=== PATIENT | female | born 1985 | race Caucasian/White ===

== ENCOUNTER 2019-04-12 03:12 | Emergency (ER) | payer MEDICAID ==
[~2019-04-12] VITALS: Ht 154.9 cm; Wt 77.1 kg
[2019-04-12 03:14] VITALS: BP 115/78
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
[2019-04-12] MEDS ORDERED: LORazepam 2 MG/ML VIAL IVP ONE (03:15)
[2019-04-12] MEDS ORDERED: NACL 0.9% 1,000 ML IV ONE ×2 (03:15→04:05)
--- NOTE | 2019-04-12 03:15 | NUR ---
DR ACUÑA AT BEDSIDE
[2019-04-12] MEDS ORDERED: LORazepam 2 MG/ML VIAL IM ONE (03:20)
--- NOTE | 2019-04-12 03:20 | NUR ---
PT REMAINS ERRATIC AND HYSTERICAL, YELLING DESPITE REORIENTATION AND CALMING PT. ADMINISTERED ATIVAN 2MG IM WITH EDUCATION, PER VERBAL ORDER FROM DR ACUÑA. PT TOLERATED WELL.
[2019-04-12] MEDS ORDERED: ONDANSETRON 4 MG/2 ML VIAL IVP ONE (03:30)
[2019-04-12 03:35] LABS: BASOPHILS # (AUTO) 0.1 K/uL (0.00-0.22); BASOPHILS % (AUTO) 1.8 % (0.0-2.0); EOSINOPHILS # (AUTO) 0.2 K/uL (0-0.4); EOSINOPHILS % (AUTO) 4.2 % (0.0-4.0); HEMATOCRIT 35.1 % (36-48); HEMOGLOBIN 11.3 g/dL (12.0-16.0); LYMPHOCYTES # (AUTO) 2.6 K/uL (2.5-16.5); MEAN CORPUSCULAR HEMOGLOBIN 27 pg (27-31); MEAN CORPUSCULAR HGB CONC 32 g/dL (33-37); MEAN CORPUSCULAR VOLUME 83.6 fL (80-94); MONOCYTES # (AUTO) 0.3 K/uL (0.8-1.0); MONOCYTES % (AUTO) 6.2 % (1.7-9.3); NEUTROPHILS # (AUTO) 1.2 K/uL (1.8-7.7); NEUTROPHILS % (AUTO) 27.6 % (42.2-75.2); PLATELET COUNT (AUTO) 349 K/uL (140-450); RED CELL DISTRIBUTION WIDTH 20.4 % (11.6-13.7); WHITE BLOOD COUNT (AUTO) 4.3 K/uL (4.8-10.8)
[2019-04-12] MEDS ORDERED: HALOPERIDOL IM 5 MG/ML VIAL IM ONE (03:40)
--- NOTE | 2019-04-12 03:40 | NUR ---
PT REMAINS ERRATIC AND HYSTERICAL, YELLING, DESPITE REORIENTATION AND CALMING PT AND ATIVAN IM. ADMINISTERED HALDOL 5MG IM WITH EDUCATION. PT TOLERATED WELL.
[2019-04-12 03:46] LABS: ANION GAP 19.1 (8-16); CARBON DIOXIDE 19.9 mmol/L (21-32); CREATININE 0.5 mg/dL (0.6-1.3)
[2019-04-12 03:49] LABS: LYMPHOCYTES % (AUTO) 60.2 % (20.5-51.1)
--- NOTE | 2019-04-12 03:55 | NUR ---
PT WITH IMPROVEMENT IN BEHAVIOR, PT IS MORE CALM AND COOPERATIVE.
--- NOTE | 2019-04-12 04:00 | NUR ---
[place] [employer] AT BEDSIDE
[2019-04-12 04:01] LABS: ALBUMIN 3.5 g/dL (3.4-5.0); TOTAL BILIRUBIN 0.2 mg/dL (0.0-1.0)
[2019-04-12 04:06] LABS: APPEARANCE,URINE CLEAR (CLEAR); BILIRUBIN,URINE NEGATIVE (NEGATIVE); BLOOD, URINE NEGATIVE (NEGATIVE); COLOR,URINE YELLOW (YELLOW); LEUKOCYTE ESTERASE ,URINE NEGATIVE (NEGATIVE); NITRITE, URINE NEGATIVE (NEGATIVE); UGLUCOSE NEGATIVE (NEGATIVE)
[2019-04-12 04:15] LABS: BARBITURATE, URINE NEG. ng/ml (NEG <=200); BENZODIAZEPINE, URINE NEG. ng/mL (NEG <=200); CANNABINOID, URINE NEG. ng/mL (NEG <=50); COCAINE, URINE NEG. ng/mL (NEG <=300); OPIATE, URINE NEG. ng/mL (NEG <=2000); PHENCYCLIDINE SCREEN,URINE NEG. ng/mL (NEG <=25)
--- NOTE | 2019-04-12 04:20 | NUR ---
PT TAKEN TO CT
--- NOTE | 2019-04-12 04:39 | NUR ---
PT BACK FROM CT. SPO2 89-91% ON RA WHILE SLEEPING, AROUSABLE TO TOUCH. SPO2 99% ON O2 2L NC. RR EVEN AND UNLABORED. ALL NEEDS MET AT THIS TIME.
--- NOTE | 2019-04-12 05:25 | NUR ---
DR ACUÑA AT BEDSIDE
--- NOTE | 2019-04-12 05:25 | NUR ---
PT LAYING IN BED, SLEEPING, AROUSABLE TO PAIN, LETHARGIC, VSS, RR EVEN AND UNLABORED. ALL NEEDS MET AT THIS TIME.
--- NOTE | 2019-04-12 05:26 | NUR ---
[place] [employer] AT BEDSIDE
--- NOTE | 2019-04-12 07:08 | NUR ---
Pt report given to ABHI LIGHT. Transfer of care at this time.
--- NOTE | 2019-04-12 07:14 | NUR ---
report recieved from sandrine cruz. pt sleeping in bed. arousable to pain. vss at this time. lights turned off for pt comfort.
--- NOTE | 2019-04-12 07:18 | NUR ---
dr delgado at bedside
--- NOTE | 2019-04-12 09:35 | NUR ---
pt breakfeast bedside. pt woken to eat and then returned to sleeping immediately after.
--- NOTE | 2019-04-12 09:50 | NUR ---
pt awoken again by touch. looks at food and then goes back to sleep.
[2019-04-12 10:10] LABS: MAGNESIUM 1.7 mg/dL (1.8-2.4)
--- NOTE | 2019-04-12 11:03 | NUR ---
PT STATES SHE HAS MONEY AND WILL TAKE A CAB
--- NOTE | 2019-04-12 11:40 | NUR ---
CALLED SECURITY FOR SHOES. AGUSTIN STATES SHE WILL LOOK FOR SIZE 10.
--- NOTE | 2019-04-12 11:50 | NUR ---
SECURITY BROUGHT PT SANDRA
--- NOTE | 2019-04-12 11:50 | NUR ---
PT UNABLE TO PASS ROAD TEST. PER DR SAUCEDA PT CAN SLEEP UNTIL SHE CAN PASS THE TEST
--- NOTE | 2019-04-12 12:04 | NUR ---
ACCU CHECK 76, PT INSTRUCTED TO EAT BREAKFEAST. PT CONINTUES TO FALL BACK ASLEEP.
--- NOTE | 2019-04-12 12:54 | NUR ---
VSS AT THIS TIME. PT SLEEPING, AROUSABLE TO PAIN
--- NOTE | 2019-04-12 13:48 | NUR ---
PT ASSISTED ONTO BED BOLTON. FAILED SECOND ROAD TEST.
--- NOTE | 2019-04-12 15:40 | NUR ---
PT [id number]. GIVEN JUICE AND WATER. PT NEVER ATE BREAKFEAST, STATES SHE IS NOT HUNGRY. FAILED ROAD TEST FOR THIRD TIME, UNSTEADY WALK. PT SITTING UPRIGHT IN BED.
--- NOTE | 2019-04-12 16:27 | NUR ---
RECENT ACCU CHECK 107
--- NOTE | 2019-04-12 17:00 | NUR ---
PT PASSES ROAD TEST BUT WISHES TO BE WHEELCHAIRED TO CAB
[2019-04-12 17:10] VITALS: BP 117/81
--- NOTE | 2019-04-12 17:10 | NUR ---
Patient discharged with v/s stable. Written and verbal after care instructions given and explained. Patient alert, oriented and verbalized understanding of instructions. Wheel Chair Assisted TO CAB. All questions addressed prior to discharge. ID band removed. Patient advised to follow up with PMD. Rx of VISATRIL given. Patient educated on indication of medication including possible reaction and side effects. Opportunity to ask questions provided and answered.
== END 2019-04-12 17:10 | disposition home or self-care (01) ==
LOC: MED 03:12
DX: S70.11XA Contusion of right thigh, initial encounter (principal); S50.12XA Contusion of left forearm, initial encounter; S40.012A Contusion of left shoulder, initial encounter; F10.129 Alcohol abuse with intoxication, unspecified; F15.90 Other stimulant use, unspecified, uncomplicated; F41.0 Panic disorder [episodic paroxysmal anxiety]; R10.9 Unspecified abdominal pain; E11.9 Type 2 diabetes mellitus without complications; F41.9 Anxiety disorder, unspecified; Z90.710 Acquired absence of both cervix and uterus; Z90.49 Acquired absence of other specified parts of digestive tract; Y04.2XXA Assault by strike against or bumped into by another person, initial encounter; Y93.89 Activity, other specified; Y92.89 Other specified places as the place of occurrence of the external cause; Y99.8 Other external cause status
CPT/HCPCS: 36415; 74176; 80053; 80305; 81003; 81025; 82948; 83735; 85025; 96361; 96372; 96374; 99284; G0482; J1630; J2060; J2405; J7030